=== PATIENT | female | born 1940 | race Caucasian/White ===

== ENCOUNTER 2023-10-11 16:00 | Outpatient (CLI) | payer MEDICARE, OTHER | END 2023-10-11 16:01 | disposition home or self-care (01) | LOC: SLEEPLAB 16:00 | PROVIDERS: ATTEND Family Medicine | DX: G47.33 Obstructive sleep apnea (adult) (pediatric) (principal); G47.10 Hypersomnia, unspecified; G25.81 Restless legs syndrome; G47.9 Sleep disorder, unspecified; R53.83 Other fatigue; G47.61 Periodic limb movement disorder; F41.9 Anxiety disorder, unspecified; E11.9 Type 2 diabetes mellitus without complications; E66.9 Obesity, unspecified; R06.83 Snoring; I10 Essential (primary) hypertension; I63.9 Cerebral infarction, unspecified; J44.9 Chronic obstructive pulmonary disease, unspecified; G47.00 Insomnia, unspecified; R35.1 Nocturia; G47.31 Primary central sleep apnea; Z68.25 Body mass index [BMI] 25.0-25.9, adult | CPT/HCPCS: 95800 ==